=== PATIENT | female | born 2000 | race African-American/Black ===

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

== ENCOUNTER 2021-02-20 14:36 | Emergency (ER) | payer OTHER ==
[~2021-02-20] VITALS: Ht 177.8 cm; Wt 86.4 kg
[2021-02-20] MEDS ORDERED: ONDANSETRON HCL 4 MG TABLET PO ONE (15:00)
[2021-02-20] MEDS ORDERED: LIDOCAINE 5% TRANSDERMAL PATCH TD ONE (15:00)
[2021-02-20 16:10] VITALS: BP 125/63
[2021-02-20] MEDS ORDERED: KETOROLAC TROMETHAMINE 30 MG/ML VIAL IM ONE (17:15)
== END 2021-02-20 17:27 | disposition home or self-care (01) ==
LOC: EMS 14:37
DX: S00.93XA Contusion of unspecified part of head, initial encounter (principal); M54.2 Cervicalgia; W01.0XXA Fall on same level from slipping, tripping and stumbling without subsequent striking against object, initial encounter; Y93.89 Activity, other specified; Y92.89 Other specified places as the place of occurrence of the external cause; Y99.8 Other external cause status
CPT/HCPCS: 70450; 72125; 96372; 99285; J1885; Q0162

== ENCOUNTER 2022-02-20 14:09 | Emergency (ER) | payer OTHER ==
[~2022-02-20] VITALS: Ht 177.8 cm; Wt 90.9 kg
[2022-02-20 14:29] VITALS: BP 131/92
== END 2022-02-20 16:26 | disposition home or self-care (01) ==
LOC: EMS 14:09
DX: S93.402A Sprain of unspecified ligament of left ankle, initial encounter (principal); Z87.2 Personal history of diseases of the skin and subcutaneous tissue; Z91.030 Bee allergy status; X50.1XXA Overexertion from prolonged static or awkward postures, initial encounter; Y93.01 Activity, walking, marching and hiking; Y92.89 Other specified places as the place of occurrence of the external cause; Y99.8 Other external cause status
CPT/HCPCS: 99283

== ENCOUNTER 2024-05-26 16:45 | Emergency (ER) | payer OTHER ==
[~2024-05-26] VITALS: Ht 177.8 cm; Wt 97.7 kg
[2024-05-26 16:59] VITALS: BP 131/82; PULSE 96; RESP 20; TEMP 98
[2024-05-26 17:54] LABS: INFLUENZA A-RTPCR,COMBO NEGATIVE (NEGATIVE); INFLUENZA B-RTPCR,COMBO NEGATIVE (NEGATIVE); RESPIRATORY SYNCYTIAL VRS-PCR NEGATIVE (NEGATIVE); SARS COVID19 RTPCR, COMBO NEGATIVE (NEGATIVE)
== END 2024-05-26 19:10 | disposition left against medical advice (07) ==
LOC: EMS 16:45
DX: J02.9 Acute pharyngitis, unspecified (principal); Z20.822 Contact with and (suspected) exposure to COVID-19; Z53.21 Procedure and treatment not carried out due to patient leaving prior to being seen by health care provider
CPT/HCPCS: 0241U; 87430

== ENCOUNTER 2024-06-16 12:34 | Emergency (ER) | payer OTHER | END 2024-06-16 12:52 | disposition left against medical advice (07) | LOC: EMS 12:34 | DX: Z53.21 Procedure and treatment not carried out due to patient leaving prior to being seen by health care provider (principal) ==

== ENCOUNTER 2025-10-12 15:28 | Emergency (ER) | payer OTHER ==
[~2025-10-12] VITALS: Ht 177.8 cm; Wt 86.0 kg
[2025-10-12 15:40] VITALS: BP 120/77; PULSE 104; RESP 18; TEMP 98.4; O2SAT 99
[2025-10-12 16:13] LABS: APPEARANCE,URINE CLEAR (CLEAR); GLUCOSE, URINE (UA) NEGATIVE (NEGATIVE); LEUKOCYTE ESTERASE ,URINE LARGE (NEGATIVE); NITRATE,URINE NEGATIVE (NEGATIVE); OCCULT BLOOD,URINE NEGATIVE (NEGATIVE); SPECIFIC GRAVITIY, URINE 1.022 (1.003-1.030)
[2025-10-12 16:24] LABS: SQUAMOUS EPITHELIAL CELL,UR Few /LPF (None Seen)
[2025-10-12] MEDS ORDERED: FLUC150T61 PO (16:27)
[2025-10-12] MEDS: CefTRIAXone SODIUM 1 GM/VIAL IM ONE (17:11)
[2025-10-12] MEDS: AZITHROMYCIN 500 MG TABLET PO ONE (17:11)
[2025-10-12] MEDS: FLUCONAZOLE 150 MG TABLET PO ONE (17:11)
[2025-10-12] MEDS: LIDOCAINE/PF 1% 2 ML VIAL IM ONE (17:11)
== END 2025-10-12 17:30 | disposition home or self-care (01) ==
LOC: EMS 15:28
DX: B37.31 Acute candidiasis of vulva and vagina (principal); L29.9 Pruritus, unspecified; Z79.899 Other long term (current) drug therapy; Z91.030 Bee allergy status
CPT/HCPCS: 99283; 81001; 87086; 96372; J0456; J0696; J3490